=== PATIENT | male | born 1945 | race Caucasian/White ===

== ENCOUNTER 2022-01-31 07:52 | Emergency (ER) | payer MEDICARE, OTHER ==
[2022-01-31] MEDS ORDERED: Albuterol/Ipratropium 3.0-0.5 MG/3 ML Neb Soln NEB ONE (08:30)
[2022-01-31 08:46] LABS: ANION GAP 10.5 mEq/L (7-13)
[2022-01-31 09:09] LABS: CORONAVIRUS COVID-19 NAA NEGATIVE (NEGATIVE)
[2022-01-31] MEDS ORDERED: methylPREDNISolone Sodium Succinate 125 MG/2 ML SDV IVPUSH ONE (09:55)
[2022-01-31] MEDS ORDERED: cefTRIAXone 1 GM in Sodium Chloride 0.9% 50 ML IV ONE (09:55)
[2022-01-31] MEDS ORDERED: Benzonatate 100 MG Cap PO ONE (09:56)
== END 2022-01-31 10:48 | disposition home or self-care (01) ==
LOC: DL.ED 07:52
DX: J44.1 Chronic obstructive pulmonary disease with (acute) exacerbation (principal); Z88.0 Allergy status to penicillin; Z87.891 Personal history of nicotine dependence; Z20.822 Contact with and (suspected) exposure to COVID-19
CPT/HCPCS: 0240U; 36415; 71046; 80053; 83605; 85025; 87040; 96365; 96375; 99284; 99285-25; A9270-GY; J0696; J2930; J7620-GY